=== PATIENT | female | born 1945 | race Caucasian/White ===

== ENCOUNTER 2025-05-01 12:28 | Inpatient (IN) | payer MEDICARE, OTHER ==
[~2025-05-01] VITALS: Ht 152.4 cm; Wt 36.7 kg
[2025-05-01] MEDS ORDERED: OLANZAPINE 10 MG VIAL IM ONE (13:32)
[2025-05-01] MEDS: OLANZAPINE 10 MG VIAL IM ONE (13:38)
[2025-05-01 14:36] LABS: APPEARANCE,URINE CLEAR (CLEAR); BLOOD, URINE NEGATIVE Ery/uL (NEGATIVE); LEUKOCYTE ESTERASE ,URINE NEGATIVE (NEGATIVE); NITRITE, URINE NEGATIVE (NEGATIVE); UGLUCOSE NEGATIVE (NEGATIVE)
[2025-05-01 14:40] LABS: PLATELET COUNT (AUTO) 333 K/uL (150-450); RED BLOOD CELL COUNT(AUTO) 5.51 MIL/uL (4.0-5.2); RED CELL DISTRIBUTION WIDTH 15.8 % (11.5-15.0); WHITE BLOOD COUNT (AUTO) 6.4 K/uL (4.3-11.0)
[2025-05-01 14:46] LABS: ALCOHOL, BLOOD < 3 mg/dL (0-10); ASPARTATE AMINOTRANSFERASE 17 U/L (15-37); CALCIUM, SERUM 8.9 mg/dL (8.5-10.1); CREATININE 0.4 mg/dL (0.6-1.3); SODIUM SERUM 133 mmol/L (136-145); TOTAL PROTEIN, SERUM 6.7 g/dL (6.4-8.2); UREA NITROGEN, BLOOD 8 mg/dL (7-18)
[2025-05-01 15:00] VITALS: O2SAT 99
[2025-05-01 15:09] LABS: AMPHETAMINE, URINE NEGATIVE (NEGATIVE); BARBITURATE, URINE NEGATIVE (NEGATIVE); BENZODIAZEPINE, URINE NEGATIVE (NEGATIVE); CANNABINOID, URINE NEGATIVE (NEGATIVE); COCCAINE, URINE NEGATIVE (NEGATIVE); OPIATE, URINE NEGATIVE (NEGATIVE)
[2025-05-01] MEDS ORDERED: ZOLPIDEM TARTRATE 5 MG TABLET PO PRN ×2 (16:30)
[2025-05-01] MEDS ORDERED: ACETAMINOPHEN 325 MG TABLET PO PRN (16:30)
[2025-05-01] MEDS ORDERED: MAG HYDROX/AL HYDROX/SIMETH 30 ML UDC PO PRN (16:30)
[2025-05-01] MEDS ORDERED: QUETIAPINE FUMARATE 25 MG TABLET PO PRN (16:30)
[2025-05-01] MEDS ORDERED: MAGNESIUM HYDROXIDE 30 ML UDC PO PRN (16:30)
[2025-05-01] MEDS: DIVALPROEX SODIUM 125 MG TABLET.DR PO SCH (18:30)
[2025-05-01] MEDS: OLANZAPINE ZYDIS 5 MG TAB.RAPDIS PO SCH (21:20)
[2025-05-01] MEDS: MIRTAZAPINE 15 MG TABLET PO SCH (21:20)
[2025-05-02 08:00] VITALS: BP 152/93; TEMP 97.7; O2SAT 97
[2025-05-03 08:00] VITALS: BP 164/98; TEMP 97.5; O2SAT 100
[2025-05-03 16:00] VITALS: BP 164/100; TEMP 97.6; O2SAT 98
[2025-05-04 08:00] VITALS: BP 139/83; TEMP 97.9; O2SAT 96
[2025-05-04] MEDS: OLANZAPINE ZYDIS 5 MG TAB.RAPDIS PO SCH (10:30)
[2025-05-04 16:00] VITALS: BP 150/102; TEMP 98.3; O2SAT 91
[2025-05-04 20:32] VITALS: BP 125/70; TEMP 98; O2SAT 91
[2025-05-05 08:00] VITALS: BP 114/65; TEMP 98; O2SAT 97
[2025-05-05 20:39] VITALS: BP 116/63; TEMP 98.2; O2SAT 97
[2025-05-06] MEDS: OLANZAPINE 10 MG VIAL IM PRN (09:39)
[2025-05-06 21:00] VITALS: BP 115/65; TEMP 98; O2SAT 98
[2025-05-07 08:00] VITALS: BP 121/88; TEMP 97.8; O2SAT 96
[2025-05-07 15:34] VITALS: BP 141/90; TEMP 97.9; O2SAT 96
[2025-05-08 08:27] VITALS: BP 160/90; TEMP 98.1; O2SAT 98
[2025-05-08 16:00] VITALS: BP 152/94; TEMP 98.1; O2SAT 98
[2025-05-08 20:03] VITALS: BP 137/70; TEMP 97.7; O2SAT 98
[2025-05-09 08:20] VITALS: BP 110/59; TEMP 97.7; O2SAT 97
[2025-05-09 19:58] VITALS: BP 134/90; TEMP 97.9; O2SAT 96
[2025-05-09] MEDS: OLANZAPINE ZYDIS 5 MG TAB.RAPDIS PO SCH (21:09)
[2025-05-10 08:00] VITALS: BP 164/94; TEMP 97.8; O2SAT 99
[2025-05-10 08:23] LABS: ASPARTATE AMINOTRANSFERASE 13.0 U/L (15-37); CALCIUM, SERUM 8.2 mg/dL (8.5-10.1); CREATININE 0.5 mg/dL (0.6-1.3); SODIUM SERUM 137.0 mmol/L (136-145); TOTAL PROTEIN, SERUM 5.4 g/dL (6.4-8.2); UREA NITROGEN, BLOOD 16.0 mg/dL (7-18)
[2025-05-10 08:45] VITALS: BP 143/88
[2025-05-10 16:00] VITALS: BP 147/83; TEMP 98.3; O2SAT 98
[2025-05-11 08:07] VITALS: BP 158/97; TEMP 97.7; O2SAT 98
[2025-05-11 08:49] LABS: LDL 68.0 mg/dL (0-99)
[2025-05-11] MEDS: METFORMIN XR 500 MG TAB.SR.24H PO SCH (10:30)
[2025-05-11] MEDS: DIVALPROEX SODIUM 125 MG TABLET.DR PO SCH (13:14)
[2025-05-11 16:05] VITALS: BP 150/67; TEMP 97.8; O2SAT 98
[2025-05-11 20:00] VITALS: BP 148/61; TEMP 97.5; O2SAT 96
[2025-05-12 08:00] VITALS: BP 132/90; TEMP 97.9; O2SAT 96
[2025-05-12] MEDS: DIVALPROEX SODIUM 125 MG TABLET.DR PO SCH ×2 (14:09→21:56)
[2025-05-12 16:00] VITALS: BP 110/62; TEMP 97.9; O2SAT 95
[2025-05-12 20:18] VITALS: BP 116/65; TEMP 97.8; O2SAT 95
[2025-05-13 08:00] VITALS: BP 116/75; TEMP 98.2; O2SAT 95
[2025-05-13 16:00] VITALS: BP 109/91; TEMP 98.1; O2SAT 91
[2025-05-13 21:21] VITALS: BP 109/93; TEMP 98.2; O2SAT 94
[2025-05-14 08:00] VITALS: BP 154/90; TEMP 97.9; O2SAT 96
[2025-05-14] MEDS: OLANZAPINE 10 MG VIAL IM PRN (10:04)
[2025-05-14] MEDS ORDERED: OLANZAPINE 10 MG VIAL IM PRN (12:00)
[2025-05-14 16:00] VITALS: BP 130/94; TEMP 97.8; O2SAT 96
[2025-05-14] MEDS: OLANZAPINE ZYDIS 5 MG TAB.RAPDIS PO SCH ×2 (17:05→21:11)
[2025-05-15 08:00] VITALS: BP 160/91; TEMP 98.1; O2SAT 98
== END 2025-05-15 16:00 | DRG 885 ==
LOC: ER 12:35 → GPS 14:50
PROVIDERS: ADMIT Psychiatry & Neurology Psychiatry; ATTEND Nurse Practitioner Family
DX: F39 Unspecified mood [affective] disorder (principal); F06.71 Mild neurocognitive disorder due to known physiological condition with behavioral disturbance; G93.49 Other encephalopathy; E87.1 Hypo-osmolality and hyponatremia; F29 Unspecified psychosis not due to a substance or known physiological condition; F20.9 Schizophrenia, unspecified; F22 Delusional disorders; Z73.6 Limitation of activities due to disability; Z79.899 Other long term (current) drug therapy; E11.9 Type 2 diabetes mellitus without complications; Z91.199 Patient's noncompliance with other medical treatment and regimen due to unspecified reason; R94.6 Abnormal results of thyroid function studies
CPT/HCPCS: 36415; 80048-TC; 80053-TC; 80061-TC; 80076-TC; 84443-TC; 85025-TC; 87081-TC; 97110-TC; 97116-TC; 97530-TC; G0480; J3490

== ENCOUNTER 2025-09-02 12:51 | Inpatient (IN) | payer MEDICARE, OTHER ==
[~2025-09-02] VITALS: Ht 154.9 cm; Wt 38.7 kg
[2025-09-02] MEDS ORDERED: OLAN2.5T3 PO (13:21)
[2025-09-02] MEDS ORDERED: DIVA-76 PO (13:21)
[2025-09-02] MEDS ORDERED: MAGN400O6 PO (13:21)
[2025-09-02] MEDS ORDERED: MAG30ORA PO (13:21)
[2025-09-02] MEDS ORDERED: OLAN5TAB3 PO (13:21)
[2025-09-02] MEDS ORDERED: DIVA125C5 PO (13:21)
[2025-09-02] MEDS ORDERED: ACET325T53 PO (13:21)
[2025-09-02] MEDS ORDERED: METF1000 PO (13:21)
[2025-09-02] MEDS ORDERED: MIRT7.5T10 PO (13:21)
[2025-09-02] MEDS ORDERED: MEMA5TAB PO (13:21)
[2025-09-02] MEDS ORDERED: DONE5TAB7 PO (13:21)
[2025-09-02 13:40] LABS: PLATELET COUNT (AUTO) 317 K/uL (150-450); RED BLOOD CELL COUNT(AUTO) 4.60 MIL/uL (4.0-5.2); RED CELL DISTRIBUTION WIDTH 15.0 % (11.5-15.0); WHITE BLOOD COUNT (AUTO) 11.5 K/uL (4.3-11.0)
[2025-09-02 13:46] LABS: CALCIUM, SERUM 8.7 mg/dL (8.5-10.1); CREATININE 0.4 mg/dL (0.6-1.3); SODIUM SERUM 132.0 mmol/L (136-145); UREA NITROGEN, BLOOD 10.0 mg/dL (7-18)
[2025-09-02 13:51] LABS: INR 1.05 (0.91-1.10)
[2025-09-02] MEDS ORDERED: ONDANSETRON HCL/PF 4 MG/2 ML VIAL ONE (14:15)
[2025-09-02] MEDS ORDERED: MORPHINE SULFATE INJ 4 MG/ML DISP.SYRIN ONE (14:16)
[2025-09-02] MEDS: ONDANSETRON HCL/PF 4 MG/2 ML VIAL IV ONE (14:23)
[2025-09-02] MEDS: MORPHINE SULFATE INJ 10 MG/ML DISP.SYRIN IV ONE (14:25)
[2025-09-02] MEDS ORDERED: Z GUARD REMEDY 4 OZ OINT TP PRN (15:00)
[2025-09-02] MEDS ORDERED: ACETAMINOPHEN 325 MG TABLET PO PRN (15:00)
[2025-09-02] MEDS ORDERED: MAGNESIUM HYDROXIDE 30 ML UDC PO PRN (15:00)
[2025-09-02] MEDS ORDERED: ONDANSETRON HCL/PF 4 MG/2 ML VIAL IVP PRN (15:00)
[2025-09-02] MEDS: IV D5/0.45 NACL 1,000 ML IV PRN (15:36)
[2025-09-02] MEDS: OLANZAPINE 2.5 MG TABLET PO SCH (16:41)
[2025-09-02] MEDS: DIVALPROEX SODIUM 250 MG TABLET.DR PO SCH (16:41)
[2025-09-02 17:00] VITALS: BP 166/92; TEMP 97.5; O2SAT 94
[2025-09-02 18:10] VITALS: BP 166/92; TEMP 97.7; O2SAT 96
[2025-09-02 20:00] VITALS: BP 141/85; TEMP 97.8; O2SAT 94
[2025-09-02] MEDS: DONEPEZIL 5 MG TABLET PO SCH (21:07)
[2025-09-02] MEDS: DIVALPROEX SODIUM 125 MG CAP.SPRINK PO SCH (21:07)
[2025-09-02] MEDS: MEMANTINE HCL 5 MG TABLET PO SCH (21:07)
[2025-09-02] MEDS: OLANZAPINE 5 MG TABLET PO SCH (21:07)
[2025-09-03] MEDS: PANTOPRAZOLE 40 MG TABLET.DR PO SCH (07:30)
[2025-09-03 07:38] LABS: PLATELET COUNT (AUTO) 257 K/uL (150-450); RED BLOOD CELL COUNT(AUTO) 4.12 MIL/uL (4.0-5.2); RED CELL DISTRIBUTION WIDTH 15.1 % (11.5-15.0); WHITE BLOOD COUNT (AUTO) 8.1 K/uL (4.3-11.0)
[2025-09-03 08:00] VITALS: BP 146/75; TEMP 98.3; O2SAT 93
[2025-09-03 11:42] LABS: CALCIUM, SERUM 8.3 mg/dL (8.5-10.1); CREATININE 0.4 mg/dL (0.6-1.3); PHOSPHORUS 3.5 mg/dL (2.5-4.9); SODIUM SERUM 133.0 mmol/L (136-145); UREA NITROGEN, BLOOD 6.0 mg/dL (7-18)
[2025-09-03 13:00] LABS: PHOSPHORUS 3.1 mg/dL (2.5-4.9)
[2025-09-03 14:26] LABS: IRON, SERUM 22 ug/dl (50-175)
[2025-09-03] MEDS ORDERED: FENTANYL PF 100MCG/2ML AMPUL ONE (15:39)
[2025-09-03] MEDS ORDERED: ROCURONIUM BROMIDE 50 MG/5 ML ONE (15:39)
[2025-09-03] MEDS ORDERED: DESFLURANE 240 ML BOTTLE IH ONE (16:39)
[2025-09-03] MEDS ORDERED: TRANEXAMIC ACID 1,000 MG/10 ML VIAL ONE (16:58)
[2025-09-03 20:00] VITALS: BP 151/84; TEMP 97.3; O2SAT 94
[2025-09-03] MEDS ORDERED: CEFAZOLIN 2 GM ONE (23:24)
[2025-09-04] MEDS: CEFAZOLIN SODIUM/DEXTROSE,ISO 1 GM/50 ML PIGGYBACK IV SCH (00:04)
[2025-09-04 07:20] LABS: PLATELET COUNT (AUTO) 236 K/uL (150-450); RED BLOOD CELL COUNT(AUTO) 3.82 MIL/uL (4.0-5.2); RED CELL DISTRIBUTION WIDTH 15.5 % (11.5-15.0); WHITE BLOOD COUNT (AUTO) 9.5 K/uL (4.3-11.0)
[2025-09-04 07:56] LABS: ASPARTATE AMINOTRANSFERASE 13.0 U/L (15-37); CALCIUM, SERUM 8.0 mg/dL (8.5-10.1); CREATININE 0.4 mg/dL (0.6-1.3); PHOSPHORUS 3.3 mg/dL (2.5-4.9); SODIUM SERUM 130.0 mmol/L (136-145); TOTAL PROTEIN, SERUM 5.9 g/dL (6.4-8.2); UREA NITROGEN, BLOOD 10.0 mg/dL (7-18)
[2025-09-04 08:00] VITALS: BP 107/102; TEMP 97.7; O2SAT 96
[2025-09-04] MEDS ORDERED: ENOX40DI SQ (13:16)
[2025-09-04] MEDS: CEFAZOLIN 2 GM in IV D5W 100 ML IV SCH (13:35)
[2025-09-04] MEDS: SOD FERRIC GLUC 125 MG in IV NS 0.9% 100 ML IV SCH (15:34)
[2025-09-04] MEDS: MORPHINE SULFATE INJ 2 MG/ML DISP.SYRIN IV PRN (15:41)
[2025-09-04 16:56] VITALS: BP 170/88
[2025-09-04] MEDS: hydrALAZINE HCL IV 20 MG VIAL IV ONE (16:56)
[2025-09-04] MEDS ORDERED: ENOXAPARIN SODIUM 40 MG/0.4 ML DISP.SYRIN SQ SCH (22:00)
== END 2025-09-04 17:25 | DRG 481 ==
LOC: ER 13:00 → TELE 15:05 → MED 15:45
PROVIDERS: ADMIT Nurse Practitioner Acute Care; ATTEND Nurse Practitioner Acute Care
PROC: 0QS606Z Reposition Right Upper Femur with Intramedullary Internal Fixation Device, Open Approach (ICD-10-PCS; principal; 2025-09-03 16:00)
DX: S72.141A Displaced intertrochanteric fracture of right femur, initial encounter for closed fracture (principal); E22.2 Syndrome of inappropriate secretion of antidiuretic hormone; S09.90XA Unspecified injury of head, initial encounter; E11.9 Type 2 diabetes mellitus without complications; D64.9 Anemia, unspecified; D72.829 Elevated white blood cell count, unspecified; F03.93 Unspecified dementia, unspecified severity, with mood disturbance; F32.A Depression, unspecified; I10 Essential (primary) hypertension; F20.9 Schizophrenia, unspecified; W18.30XA Fall on same level, unspecified, initial encounter; T43.95XA Adverse effect of unspecified psychotropic drug, initial encounter; Y92.129 Unspecified place in nursing home as the place of occurrence of the external cause; Z79.84 Long term (current) use of oral hypoglycemic drugs; Z79.899 Other long term (current) drug therapy; X58.XXXA Exposure to other specified factors, initial encounter; Y92.9 Unspecified place or not applicable; F39 Unspecified mood [affective] disorder; D75.89 Other specified diseases of blood and blood-forming organs
CPT/HCPCS: 36415; 71045-TC; 73502; 73552; 80048-TC; 80053-TC; 82728-TC; 82962-TC; 83540-TC; 83735-TC; 84100-TC; 84439-TC; 84443-TC; 84484-TC; 85025-TC; 85730-TC; 86850-TC; 93307-TC; 97110-TC; 97112-TC; 97530-TC; 97535-TC; A4223; G0378; J0360; J0690; J1100; J2270; J2405; J2704; J2916; J3010; J3490; J7030; J7060